=== PATIENT | male | born 1980 | race Caucasian/White ===

== ENCOUNTER 2016-11-05 14:47 | Inpatient (IN) ==
[2016-11-05] MEDS ORDERED: ONDANSETRON 4 MG/2 ML VIAL IV ONE (15:03)
[2016-11-05] MEDS ORDERED: 0.9 % SODIUM CHLORIDE 1,000 ML IV ONE ×2 (15:03→19:05)
--- NOTE | 2016-11-05 15:03 | Emergency Department Note ---
General Adult HPI - General Chief complaint: Shortness of Breath/Dyspnea Stated complaint: sob Source: patient Mode of arrival: ambulatory Limitations: no limitations - History of Present Illness HPI Narrative: This patient has had about cough flulike syndrome for 10 days. He says his flu test was negative. He was prescribed antibiotics but has been unable to keep anything down due to nausea and vomiting recently. He had a chest CT last Saturday at [place]'s not clear why don't have results yet. He is diabetic. - Related Data Home Medications Medication Instructions Recorded Confirmed blood sugar diagnostic strips See Dose Instructions .ROUTE 03/24/15 11/05/16 .MEDSUPPLY insulin lispro 100 unit/mL 9 unit SUB-Q .OT ml 03/24/15 11/05/16 subcutaneous pen pen needle, diabetic 32 gauge x See Dose Instructions .ROUTE 03/24/15 11/05/16" .MEDSUPPLY Previous Rx's Medication Instructions Recorded polyethylene glycol 3350 17 gram 17 g PO QDAY #30 each 05/17/16 oral powder packet insulin glargine 100 unit/mL (3 40 unit SUB-Q QHS #12 ml 06/05/16 mL) subcutaneous pen gabapentin 300 mg capsule 300 mg PO TID #90 cap 08/23/16 bupropion HCl XL 300 mg 24 hr 300 mg PO QAM #30 tab 09/12/16 tablet, extended release promethazine 25 mg tablet 25 mg PO Q6H PRN #120 tab 09/13/16 metoclopramide 10 mg tablet 10 mg PO QID #120 tab 10/24/16 hydrocodone 10 mg-acetaminophen 1 tab PO Q6H PRN 30 Days 10/25/16 325 mg tablet Allergies Allergy/AdvReac Type Severity Reaction Status Date / Time pregabalin [From Lyrica] Allergy Blurry Verified 11/05/16 14:20 Vision pseudoephedrine AdvReac Palpitation Verified 11/05/16 14:20 s Review of Systems Constitutional: Denies: fever, chills Eyes: Denies: eye pain ENT ED: Denies: ear pain, throat pain Cardiovascular: Denies: chest pain Respiratory: Reports: cough Gastrointestinal: Reports: abdominal pain, nausea, vomiting Genitourinary: Denies: urgency Musculoskeletal: Denies: back pain Integumentary: Denies: rash Past Medical History - Past Medical History Medical history: Reports: asthma, diabetes, other (hepatitis C) Psychiatric history: Reports: anxiety, ADD Physical Exam - General Limitations: no limitations General appearance: alert - Head Head exam: atraumatic - Eye Eye exam: Present: normal appearance - ENT ENT exam: mucous membranes dry - Neck Neck exam: Present: normal inspection - Chest Chest inspection: Present: normal inspection - Respiratory Respiratory exam: Present: normal lung sounds bilaterally - Cardiovascular Cardiovascular exam: Present: regular rate, normal rhythm, normal heart sounds - Abdominal Exam Abdominal exam: Present: soft, tenderness. Absent: distention, guarding, rebound Abdominal tenderness: Present: diffuse - Neurological Exam Neurological exam: Present: alert - Psychiatric Psychiatric exam: Present: normal affect - Skin Skin exam: Present: warm, dry Course Course Narrative: This patient became hypoglycemic down in the 30s 3 times while here. He needs to have a lot of nausea. We will go ahead and admit him to the hospital at this time. Vital Signs Temperature 97.7 F 11/05/16 14:52 Pulse Rate 97 H 11/05/16 14:52 Respiratory Rate 16 11/05/16 14:52 Blood Pressure 158/101 11/05/16 14:52 Pulse Oximetry (%) 100 11/05/16 14:52 Temperature 97.7 F 11/05/16 14:52 Pulse Rate 97 H 11/05/16 19:13 Respiratory Rate 18 11/05/16 19:13 Blood Pressure 140/83 11/05/16 19:13 Pulse Oximetry (%) 97 11/05/16 19:13 Medical Decision Making - Lab Data Lab results reviewed: Yes I reviewed the patient's lab results. Result diagrams: 11/05/16 15:15 11/05/16 15:15 Lab Results 11/05/16 11/05/16 11/05/16 Range/Units 15:15 15:15 15:15 WBC 10.4 (4.5-11.0) K/mcL RBC 3.78 L (4.50-5.90) M/mcL Hgb 12.1 L (13.5-16.5) g/dL Hct 35.7 L (41.0-55.0) % MCV 94.5 (80.0-100.0) fL MCH 32.1 (26.0-34.0) pg MCHC 33.9 (31.0-36.0) g/dL RDW 12.4 (11.5-14.5) % Plt Count 303 (140-440) K/mcL MPV 9.7 (7.4-10.4) fL Gran % 60.1 (38.0-78.0) % Lymph % (Auto) 30.0 (15.5-49.0) % Jennings % (Auto) 5.6 (1.0-9.0) % Eos % (Auto) 3.9 (0.0-7.0) % Baso % (Auto) 0.4 (0.0-2.0) % Gran # 6.2 (1.8-8.0) K/mcL Lymph # 3.1 (1.5-4.8) K/mcL Jennings # 0.6 (0.1-0.9) K/mcL Eos # 0.4 (0.0-0.7) K/mcL Baso # 0 (0.0-0.3) K/mcL Sodium 138 (133-145) mmol/L Potassium 4.3 (3.3-5.1) mmol/L Chloride 102 (96-108) mmol/L Carbon Dioxide 19 L (22-30) mmol/L Anion Gap 17.0 H (8-16) BUN 8 (6-20) mg/dl Creatinine 0.9 (0.7-1.2) mg/dl GFR Calculation 109 Glucose 143 H (70-105) mg/dL Calcium 9.1 (8.6-10.4) mg/dl Total Bilirubin 0.3 (0.0-1.0) mg/dL AST 22 (0-37) U/l ALT 24 (0-40) U/l Alkaline Phosphatase 66 (39-117) U/L Total Protein 6.6 (5.9-8.4) gm/dL Albumin 3.5 (3.2-5.2) gm/dL Globulin 3.1 (2.2-3.7) gm/dL Albumin/Globulin Ratio 1.1 (1.0-2.3) Beta-Hydroxybutyrate 0.10 (< 0.27) mmol/L Urine Color Urine Appearance Urine pH (5.0-9.0) Ur Specific [place] (1.000-1.035) Urine Protein (NEG) mg/dL Urine Glucose (UA) (NEG) mg/dL Urine Ketones (NEG) mg/dL Urine Occult Blood (<0.03) mg/dL Urine Nitrate (NEG) Urine Bilirubin (NEG) mg/dL Urine Urobilinogen (NEG) mg/dL Ur Leukocyte Esterase (NEG) /uL Urine RBC (0-1) /hpf Urine WBC (0-4) /hpf Ur Squamous Epith Cells (0-4) /hpf Urine Bacteria (0) /hpf Urine Mucus (0) /hpf Urine Sperm (ABSENT) /hpf Ur Culture Indicated? 11/05/16 Range/Units 18:12 WBC (4.5-11.0) K/mcL RBC (4.50-5.90) M/mcL Hgb (13.5-16.5) g/dL Hct (41.0-55.0) % MCV (80.0-100.0) fL MCH (26.0-34.0) pg MCHC (31.0-36.0) g/dL RDW (11.5-14.5) % Plt Count (140-440) K/mcL MPV (7.4-10.4) fL Gran % (38.0-78.0) % Lymph % (Auto) (15.5-49.0) % Jennings % (Auto) (1.0-9.0) % Eos % (Auto) (0.0-7.0) % Baso % (Auto) (0.0-2.0) % Gran # (1.8-8.0) K/mcL Lymph # (1.5-4.8) K/mcL Jennings # (0.1-0.9) K/mcL Eos # (0.0-0.7) K/mcL Baso # (0.0-0.3) K/mcL Sodium (133-145) mmol/L Potassium (3.3-5.1) mmol/L Chloride (96-108) mmol/L Carbon Dioxide (22-30) mmol/L Anion Gap (8-16) BUN (6-20) mg/dl Creatinine (0.7-1.2) mg/dl GFR Calculation Glucose (70-105) mg/dL Calcium (8.6-10.4) mg/dl Total Bilirubin (0.0-1.0) mg/dL AST (0-37) U/l ALT (0-40) U/l Alkaline Phosphatase (39-117) U/L Total Protein (5.9-8.4) gm/dL Albumin (3.2-5.2) gm/dL Globulin (2.2-3.7) gm/dL Albumin/Globulin Ratio (1.0-2.3) Beta-Hydroxybutyrate (< 0.27) mmol/L Urine Color Yellow Urine Appearance Clear Urine pH 8.0 (5.0-9.0) Ur Specific [place] 1.008 (1.000-1.035) Urine Protein 30 A (NEG) mg/dL Urine Glucose (UA) 50 A (NEG) mg/dL Urine Ketones Neg (NEG) mg/dL Urine Occult Blood 0.03 A (<0.03) mg/dL Urine Nitrate Neg (NEG) Urine Bilirubin Neg (NEG) mg/dL Urine Urobilinogen Neg (NEG) mg/dL Ur Leukocyte Esterase Neg (NEG) /uL Urine RBC 2 H (0-1) /hpf Urine WBC < 1 (0-4) /hpf Ur Squamous Epith Cells 0 (0-4) /hpf Urine Bacteria 0 (0) /hpf Urine Mucus Few (0) /hpf Urine Sperm Present A (ABSENT) /hpf Ur Culture Indicated? No Disposition Clinical Impression: Diabetes mellitus type 1, Gastroenteritis Disposition: Xfer As Inpt ([facility]) Condition: Good Referrals: Fam Reyes DO [Primary Care Provider] - Time of Disposition: 20:13
[2016-11-05] MEDS: HYDROmorphone 2 MG/ML SYRINGE IV PRN ×5 (15:26→22:43)
[2016-11-05 16:23] LABS: Basophils # (Auto) 0 K/mcL (0.0-0.3); Basophils % (Auto) 0.4 % (0.0-2.0); Eosinophils # (Auto) 0.4 K/mcL (0.0-0.7); Eosinophils % (Auto) 3.9 % (0.0-7.0); Granulocytes % (Auto) 60.1 % (38.0-78.0); Lymphocytes # (Auto) 3.1 K/mcL (1.5-4.8); Mean Cell Volume 94.5 fL (80.0-100.0); Mean Corpuscular HGB Conc 33.9 g/dL (31.0-36.0); Mean Corpuscular Hemoglobin 32.1 pg (26.0-34.0); Monocytes # (Auto) 0.6 K/mcL (0.1-0.9); Monocytes % (Auto) 5.6 % (1.0-9.0); Platelet Count 303 K/mcL (140-440); RBC 3.78 M/mcL (4.50-5.90); Red Cell Distribution Width 12.4 % (11.5-14.5)
[2016-11-05 16:59] LABS: ALT/SGPT 24 U/l (0-40); Albumin 3.5 gm/dL (3.2-5.2); Albumin/Globulin Ratio 1.1 (1.0-2.3); Alkaline Phosphatase 66 U/L (39-117); Blood Urea Nitrogen 8 mg/dl (6-20)
[2016-11-05] MEDS ORDERED: DEXTROSE 50% 50 ML SYRINGE IV ONE ×3 (17:45→19:07)
[2016-11-05 19:12] LABS: Appearance,Urine CLEAR; Bacteria,Urine 0 /hpf (0); Bilirubin,Urine NEG (NEG); Color,Urine YELLOW; Glucose,Urine (UA) 50 mg/dL (NEG); Leukocyte Esterase,Urine NEG /uL (NEG); Mucus,Urine FEW /hpf (0); Nitrate,Urine NEG (NEG); Protein,Urine 30 mg/dL (NEG); Specific Gravity,Urine 1.008 (1.000-1.035); Sperm,Urine PRESENT /hpf (ABSENT); Urine Blood 0.03 mg/dL (<0.03); Urine RBC 2 /hpf (0-1); Urine Squamous Epithelial Cell 0 /hpf (0-4); Urine WBC < 1 /hpf (0-4); Urobilinogen,Urine NEG (NEG)
[2016-11-05] MEDS ORDERED: AZITHROMYCIN 250 MG in DEXTROSE 5% IN WATER 250 ML IV SCH (19:15)
[2016-11-05] MEDS: DEXTROSE 10 % IN WATER 1,000 ML IV SCH (21:40)
[2016-11-05] MEDS ORDERED: POTASSIUM CHLORIDE 20 MEQ PACKET PO PRN (21:59)
[2016-11-05] MEDS ORDERED: ACETAMINOPHEN 1,000 MG/100 ML BOTTLE IV PRN (21:59)
[2016-11-05] MEDS ORDERED: POTASSIUM CHLORIDE 40 MEQ in DEXTROSE 5% IN WATER 500 ML IV PRN (21:59)
[2016-11-05] MEDS ORDERED: 0.9 % SODIUM CHLORIDE 1,000 ML IV SCH (21:59)
[2016-11-05] MEDS ORDERED: ACETAMINOPHEN 325 MG TABLET PO PRN (21:59)
[2016-11-05] MEDS ORDERED: DEXTROSE 50% 50 ML VIAL IV PRN ×2 (21:59)
[2016-11-05] MEDS ORDERED: DEXTROSE 50% 50 ML VIAL IV ONE (22:15)
[2016-11-05] MEDS: 0.9 % SODIUM CHLORIDE 10 ML SYRINGE IV SCH (22:21)
[2016-11-05] MEDS: INSULIN LISPRO 1 UNIT/0.01 ML UNIT SQ SCH (22:33)
[2016-11-05] MEDS: ONDANSETRON 4 MG/2 ML VIAL IV PRN (22:43)
[2016-11-05] MEDS: HYDROcodone/APAP 10/325MG TABLET PO PRN (23:41)
[2016-11-05] MEDS: traZODone HCL 50 MG TABLET PO PRN (23:41)
[2016-11-06] MEDS: SENNOSIDES/DOCUSATE SODIUM 1 TAB TABLET PO SCH ×2 (00:22→21:34)
[2016-11-06] MEDS: GABAPENTIN 300 MG CAPSULE PO SCH ×5 (00:22→21:32)
[2016-11-06] MEDS: DOCUSATE SODIUM 100 MG CAPSULE PO SCH ×3 (00:23→21:34)
[2016-11-06] MEDS: 0.9 % SODIUM CHLORIDE 1,000 ML IV SCH ×4 (02:10→19:01)
[2016-11-06] MEDS: HYDROmorphone 2 MG/ML SYRINGE IV PRN ×5 (04:07→22:45)
[2016-11-06] MEDS: ONDANSETRON 4 MG/2 ML VIAL IV PRN ×2 (05:13→21:58)
[2016-11-06] MEDS: 0.9 % SODIUM CHLORIDE 10 ML SYRINGE IV SCH ×3 (05:47→21:45)
[2016-11-06 06:31] LABS: Mean Cell Volume 96.1 fL (80.0-100.0); Mean Corpuscular HGB Conc 33.6 g/dL (31.0-36.0); Mean Corpuscular Hemoglobin 32.3 pg (26.0-34.0); Platelet Count 260 K/mcL (140-440); RBC 3.27 M/mcL (4.50-5.90); Red Cell Distribution Width 12.7 % (11.5-14.5)
[2016-11-06 07:31] LABS: ALT/SGPT 18 U/l (0-40); Albumin/Globulin Ratio 1.2 (1.0-2.3); Alkaline Phosphatase 55 U/L (39-117); Bilirubin,Direct < 0.2 mg/dL (0.0-0.3); Blood Urea Nitrogen 6 mg/dl (6-20); Gamma Glutamyl Transpeptidase 19 U/L (8-61); Magnesium 1.8 mg/dL (1.6-2.5); Phosphorous 3.1 mg/dL (2.7-4.5)
[2016-11-06] MEDS: INSULIN LISPRO 1 UNIT/0.01 ML UNIT SQ SCH ×4 (07:59→21:32)
[2016-11-06] MEDS: HYDROcodone/APAP 10/325MG TABLET PO PRN (08:13)
[2016-11-06] MEDS: PROMETHAZINE 25 MG TABLET PO PRN ×2 (08:13→22:04)
[2016-11-06] MEDS: PANTOPRAZOLE 40 MG VIAL IV SCH (08:13)
[2016-11-06 08:14] LABS: Band Neutrophils % 1 % (0-10); Eosinophils % (Manual) 5 % (0-7); Lymphocytes % 28 % (15-49); Monocytes % (Manual) 7 % (1-9); Platelet Estimate NORMAL (NORMAL); RBC Morphology NORMAL (NORMAL); Segmented Neutrophils % 57 % (38-78)
[2016-11-06] MEDS ORDERED: INSULIN GLARGINE, HUMAN 1 UNIT/0.01 ML SQ SCH ×2 (09:00→21:26)
[2016-11-06] MEDS: MULTIVIT,THER IRON,CA,FA & MIN 1 TABLET PO SCH (09:35)
[2016-11-06] MEDS: buPROPion 150 MG TAB.XL.24H PO SCH (09:35)
[2016-11-06] MEDS: ENOXAPARIN 40 MG/0.4 ML SYRINGE SQ SCH (09:35)
[2016-11-06] MEDS ORDERED: IPRATROPIUM/ALBUTEROL 3 ML AMPUL.NEB NEB PRN (11:08)
--- NOTE | 2016-11-06 11:12 | Internal Med Progress Note ---
Medical - PN: Subj Patient information: Note initiated : 11/06/16 at 11:09 am Service Date, if different from initiated Date: [] Patient: Mono Pacheco 36 y/o M admitted on 11/05/16 for Shortness of Breath/ Diabetes, Gastroenteritis. Chief Complaint: [] Interval history: 11/05- patient admitted with early DKA/nausea vomiting and URI. Significant shortness of breath and persistent cough. Associated nausea. Admitted as inpatient in light of Ketoacidosis and hypoglycemia 11/06 patient doing better. Improved nausea persistent cough and shortness of breath. On bronchodilators. No fever chills nausea vomiting. Mother at bedside. No active concerns per nursing staff. - Constitutional Vitals: Vital Signs Temp Pulse Resp BP Pulse Ox 97.6 F 80 18 109/70 97 11/06/16 08:00 11/06/16 11:07 11/06/16 11:07 11/06/16 11:07 11/06/16 11:07 Period Temp Pulse Resp BP Sys/Shore Pulse Ox Last 24 Hr 97.6 F-98.1 F 80-98 16-20 100-154/65-98 95-99 Intake and Output 11/05/16 11/06/16 11/06/16 21:59 05:59 13:59 Intake Total 1200 / 1200 Balance 1200 / 1200 Weight 147 lb Intake & Output: Intake & Output 11/05/16 11/06/16 11/06/16 21:59 05:59 13:59 Intake Total 1200 / 1200 Balance 1200 / 1200 Weight 147 lb Intake: IV 1000 / 1000 Sodium Chloride 0.9% 1, 1000 / 1000 000 ml @ Wide Open IV BOLUS YAHIR Rx#:[id number] Oral 200 / 200 Other: # Voids 1 General appearance: cooperative, no acute distress Exam: alert oriented minimally labored breathing, Expiratory rhonchi Regular rhythm Nondistended soft abdomen No lymphedema Medical - PN: Obj Da - Labs CBC & Chem 7: 11/06/16 03:40 11/06/16 03:40 Labs: Abnormal Lab Results 11/06/16 11/06/16 03:40 03:40 RBC 3.27 L Hgb 10.6 L Hct 31.4 L Calcium 7.8 L Total Protein 5.5 L Albumin 3.0 L Meds: Medications Acetaminophen (Tylenol) 650 mg PO Q4-6HP PRN PRN Reason: PAIN/FEVER > 101 Last Admin: 11/06/16 02:08 Dose: 650 mg Acetaminophen/Hydrocodone Bitart ([place] 10/325mg) 1 tab PO Q6HP PRN PRN Reason: Chronic Pain Syndrome Last Admin: 11/06/16 08:13 Dose: 1 tab Albuterol/Ipratropium (Duoneb) 3 ml NEB Q4HP PRN PRN Reason: Shortness Of Breath Budesonide (Pulmicort) 2 puff INH BID [facility] Bupropion HCl (Wellbutrin Xl) 300 mg PO DAILY [facility] Last Admin: 11/06/16 09:35 Dose: 300 mg Dextrose (Dextrose 50%) 0 ml IV UD PRN PRN Reason: Hypoglycemia Last Admin: 11/05/16 22:21 Dose: 50 ml Dextrose (Dextrose 50%) 50 ml IV UD PRN PRN Reason: Hypoglycemia Diagnostic Test (Pha) (Accu-Chek) 1 each FS ACHS [facility] Last Admin: 11/06/16 07:59 Dose: 1 each Docusate Sodium (Colace) 100 mg PO BID [facility] Last Admin: 11/06/16 09:35 Dose: Not Given Enoxaparin Sodium (Lovenox) 40 mg SQ DAILY [facility] Last Admin: 11/06/16 09:35 Dose: 40 mg Gabapentin (Neurontin) 300 mg PO TID [facility] Last Admin: 11/06/16 09:34 Dose: 300 mg Guaifenesin/Codeine Phosphate (Robitussin Ac) 10 ml PO Q4HP PRN PRN Reason: Cough Hydromorphone HCl (Dilaudid) 0 mg IV Q4HP PRN PRN Reason: Pain Last Admin: 11/06/16 08:15 Dose: 0.5 mg Potassium Chloride 40 meq/ (Dextrose) 520 mls @ 130 mls/hr IV UD PRN PRN Reason: K+ = or < 3.5 Sodium Chloride (Sodium Chloride 0.9%) 1,000 mls @ 100 mls/hr IV .Q10H [facility] Last Admin: 11/06/16 02:31 Dose: Not Given Sodium Chloride (Sodium Chloride 0.9%) 1,000 mls @ 0 mls/hr IV BOLUS [facility] PRN Reason: Wide Open Last Infusion: 11/06/16 02:10 Dose: Infused Acetaminophen (Ofirmev) 1,000 mg in 100 mls @ 200 mls/hr IV Q6HP PRN PRN Reason: PAIN/FEVER > 101 Dextrose (Dextrose 10%-Water Iv Solution) 1,000 mls @ 50 mls/hr IV .Q20H [facility] Last Admin: 11/05/16 21:40 Dose: 50 mls/hr Levofloxacin (Levaquin) 750 mg in 150 mls @ 100 mls/hr IV Q24H [facility] Insulin Glargine (Lantus) 20 unit SQ DAILY [facility] Last Admin: 11/06/16 11:07 Dose: Not Given Insulin Human Lispro (Humalog) 0 unit SQ ACHS [facility] PRN Reason: Protocol Last Admin: 11/06/16 07:59 Dose: Not Given Iron Carb/Multivit/Highfill/Folic Acid (Multivitamin W/Minerals) 1 tab PO DAILY [facility] Last Admin: 11/06/16 09:35 Dose: 1 tab Methylprednisolone Sodium Succinate (Solu-Medrol) 40 mg IV Q12 [facility] Ondansetron HCl (Zofran) 4 mg IV Q4-6HP PRN PRN Reason: Nausea And Vomiting Last Admin: 11/06/16 05:13 Dose: 4 mg Pantoprazole Sodium (Protonix) 40 mg IV QAMAC [facility] Last Admin: 11/06/16 08:13 Dose: 40 mg Potassium Chloride (Klor-Con) 40 meq PO DAILYP PRN PRN Reason: K+ < 3.5 Promethazine HCl (Phenergan) 25 mg PO Q6HP PRN PRN Reason: nausea and vomiting Last Admin: 11/06/16 08:13 Dose: 25 mg Senna/Docusate Sodium (Senna Plus Tablet) 1 tab PO HS [facility] Last Admin: 11/06/16 00:22 Dose: Not Given Sodium Chloride (Saline Flush) 10 ml IV Q8 [facility] Last Admin: 11/06/16 05:47 Dose: Not Given Trazodone HCl (Desyrel) 50 mg PO HSP PRN PRN Reason: Insomnia Last Admin: 11/05/16 23:41 Dose: 50 mg Medical - PN: A/P - Time Spent With Patient Total time spent is greater than 50% in coordination of care (as documented) at patient's floor/unit and/or counseling patient: 25 - 35 minutes (1) Diabetic ketoacidosis Status: Acute Assessment and plan: * early DKA- patient responded well to crystalloids insulin. Nearly resolved with normalization of anion gap and acidosis. Continue lectrolyteManagement and transfer to medical floor * Acute bronchitis in the setting of asthma- start IV steroids and bronchodilators pulmonary toilet. Levaquin for infectious coverage however de- escalate if no evidence of infection * DM type I on basal prandial insulin * Neuropathy and gabapentin * Anxiety disorder on bupropion * DVT prophylaxis on enoxaparin Plan * DKA management per protocol * Bronchodilators steroids * Pre-existing medical condition management as above Current Visit: No Medical - PN: Qual - Stroke Symptom Onset Unknown: No - VTE Deep Vein Thrombosis/Pulmonary Embolism Present on Admission: No
[2016-11-06] MEDS ORDERED: IBUPROFEN 200 MG TABLET PO PRN (11:17)
[2016-11-06] MEDS: guaiFENesin/CODEINE 10 ML UDC PO PRN ×3 (11:30→22:52)
[2016-11-06] MEDS: LEVOFLOXACIN 750 MG/150 ML BAG IV SCH (11:30)
[2016-11-06] MEDS: methylPREDNISolone SOD SUCC 40 MG/ML VIAL IV SCH ×2 (11:30→21:44)
--- NOTE | 2016-11-06 12:32 | History and Physical Report ---
DATE OF ADMISSION: 11/05/2016 REASON FOR ADMISSION: Worsening shortness of breath, nausea, vomiting and unable to take orally. HISTORY OF CHIEF COMPLAINT: The patient is a 36-year-old with known history of type 1 diabetes who comes to [facility] with relentless nausea and vomiting, along with cough, shortness of breath that started roughly a few days ago and has evolved into a significant decline in respiratory status along with inability to take orally. In the ER, initial workup was significant for sugars in the 30s. However, with significant anion gap and metabolic acidosis and low bicarbonate suggestive of early DKA. The patient was started on crystalloids along with dextrose and bronchodilators. Hospitalist Service was consulted. At the time of examination, the patient is accompanied with his mother. He was able to provide most of the history. He endorses to flu-like symptoms over the last week which has progressed with inability to function, increasing relentless coughing spells and associated headache and nausea. He denies, however, fevers, shaking chills. He does endorse productive sputum but denies diarrhea, dysuria, abdominal pain, rash, joint swelling, arthralgia. He also denies glandular swelling, or weight loss. He endorses to sick contact, including his mother and kids. He is a single father. REVIEW OF SYSTEMS: Ten-point review of system was performed and negative except the ones discussed above. PAST MEDICAL HISTORY: 1. Type 1 diabetes. 2. Neuropathy. 3. Anxiety disorder. CURRENT MEDICATIONS: 1. Glargine 40 units daily. 2. Gabapentin 300 mg t.i.d. 3. Bupropion 300 mg q.a.m. 4. Promethazine 25 mg q.6h. 5. Hydrocodone/acetaminophen 10/325 mg one tab q.6. SOCIAL HISTORY: The patient occasionally smokes but frequently smokes marijuana. He is a single father, and lives with mother who provides help with two kids. He is on SSI disability. FULL CODE STATUS. Primary care physician is Fam Reyes DO. FAMILY HISTORY: Significant for father with colon cancer, MS. PHYSICAL EXAMINATION: GENERAL: The patient is alert, oriented, in significant distress. Height 5 feet 9 inches. BMI 21.7. VITAL SIGNS: Blood pressure 147/98, respiratory rate 17, temperature 98.1, pulse 98, sats 99% on room air. HEENT: Pupils symmetric. Oral cavity is dry. No ear or nose discharge. Head is normocephalic and atraumatic. NECK: No lymphadenopathy. HEART: S1, S2, regular rate and rhythm. No murmur. CHEST: Increased expiratory rhonchi along with labored breathing. ABDOMEN: Nontender, nondistended, no organomegaly. LOWER EXTREMITIES: No cyanosis or clubbing. No joint swelling. SKIN: No suspicious lesions. PSYCHIATRIC: Alert and cooperative, mild anxiety. NEURO: Nonfocal. LABS AND IMAGING: White count 10.4, hemoglobin 12.1, neutrophils 60%. Sodium 130, potassium 4.3, creatinine 0.9, BUN 8, anion gap 17, bicarbonate 19. LFTs unremarkable. Beta hydroxybutyrate 0.1. UA unremarkable. EKG: Sinus tachycardia. ASSESSMENT AND PLAN: A 36-year-old admitted with mild diabetic ketoacidosis (DKA) along with acute asthma exacerbation, likely from bronchitis. 1. Mild DKA. Will be managed per protocol. Admit to telemetry. Continue aggressive electrolyte monitoring and replacement, along with insulin, crystalloids and supportive management. 2. Asthma exacerbation in light of bronchitis. Continue steroids, bronchodilators and pulmonary toilet. 3. History of: a. Anxiety disorder. Continue bupropion. b. Neuropathy. Continue gabapentin. c. Diabetes mellitus type 1. Continue basal prandial insulin. Overall a high-complexity admit requiring telemetry stay and we anticipate at least to mid night hospitalization. AA:axel Job ID: [id number] Doc ID: [id number] Faizan Reyes DO
[2016-11-06] MEDS: HYDROcodone/APAP 5/325MG TABLET PO PRN ×3 (13:08→22:46)
[2016-11-06] MEDS: DEXTROSE 10 % IN WATER 1,000 ML IV SCH (18:13)
[2016-11-06] MEDS: traZODone HCL 50 MG TABLET PO PRN (21:32)
[2016-11-06] MEDS: BUDESONIDE 1 PUFF INHALER INH SCH (21:40)
[2016-11-06] MEDS ORDERED: INSULIN GLARGINE, HUMAN 1 UNIT/0.01 ML SQ ONE (21:43)
[2016-11-06] MEDS ORDERED: INSULIN LISPRO 1 UNIT/0.01 ML UNIT SQ ONE (21:44)
[2016-11-06] MEDS ORDERED: 0.9 % SODIUM CHLORIDE 1,000 ML IV SCH (22:00)
[2016-11-06] MEDS ORDERED: METOCLOPRAMIDE 10 MG TABLET PO SCH (22:00)
[2016-11-06] MEDS ORDERED: METOCLOPRAMIDE 10 MG/2 ML VIAL ONE (22:27)
[2016-11-06] MEDS ORDERED: METOCLOPRAMIDE 10 MG TABLET ONE (22:37)
[2016-11-07] MEDS: HYDROcodone/APAP 5/325MG TABLET PO PRN ×2 (03:52→08:12)
[2016-11-07] MEDS: HYDROmorphone 2 MG/ML SYRINGE IV PRN ×2 (03:53→08:11)
[2016-11-07 06:42] LABS: Mean Cell Volume 95.8 fL (80.0-100.0); Mean Corpuscular HGB Conc 33.5 g/dL (31.0-36.0); Mean Corpuscular Hemoglobin 32.1 pg (26.0-34.0); Platelet Count 283 K/mcL (140-440); Red Cell Distribution Width 12.3 % (11.5-14.5)
[2016-11-07 06:57] LABS: ALT/SGPT 19 U/l (0-40); Albumin 3.3 gm/dL (3.2-5.2); Albumin/Globulin Ratio 1.1 (1.0-2.3); Alkaline Phosphatase 67 U/L (39-117); Bilirubin,Direct < 0.2 mg/dL (0.0-0.3); Blood Urea Nitrogen 11 mg/dl (6-20); Gamma Glutamyl Transpeptidase 21 U/L (8-61); Magnesium 1.9 mg/dL (1.6-2.5); Phosphorous 2.3 mg/dL (2.7-4.5); Uric Acid 4.2 mg/dL (2.5-8.0)
[2016-11-07] MEDS: PANTOPRAZOLE 40 MG VIAL IV SCH (07:24)
[2016-11-07] MEDS: 0.9 % SODIUM CHLORIDE 10 ML SYRINGE IV SCH (07:24)
[2016-11-07] MEDS: DOCUSATE SODIUM 100 MG CAPSULE PO SCH (07:30)
[2016-11-07] MEDS: INSULIN LISPRO 1 UNIT/0.01 ML UNIT SQ SCH ×2 (07:30→09:18)
[2016-11-07] MEDS: GABAPENTIN 300 MG CAPSULE PO SCH (08:12)
[2016-11-07] MEDS: methylPREDNISolone SOD SUCC 40 MG/ML VIAL IV SCH (08:12)
[2016-11-07] MEDS: MULTIVIT,THER IRON,CA,FA & MIN 1 TABLET PO SCH (08:12)
[2016-11-07] MEDS: ENOXAPARIN 40 MG/0.4 ML SYRINGE SQ SCH (08:12)
[2016-11-07 08:29] LABS: Band Neutrophils % 3 % (0-10); Lymphocytes % 15 % (15-49); Monocytes % (Manual) 1 % (1-9); Platelet Estimate NORMAL (NORMAL); RBC Morphology NORMAL (NORMAL); Segmented Neutrophils % 81 % (38-78)
[2016-11-07] MEDS: buPROPion 150 MG TAB.XL.24H PO SCH (09:05)
[2016-11-07] MEDS: BUDESONIDE 1 PUFF INHALER INH SCH (09:05)
[2016-11-07] MEDS: LEVOFLOXACIN 750 MG/150 ML BAG IV SCH (09:13)
[2016-11-07] MEDS ORDERED: FLU VACC QS2016-17 36MOS UP/PF 60 MCG/0.5 ML SYRINGE IM ONE (10:00)
--- NOTE | 2016-11-07 10:41 | Discharge Summary ---
Medical - DS: Prov Patient information: Note initiated : 11/07/16 at 10:37 am Service Date, if different from initiated Date: [] Patient: Mono Pacheco 36 y/o M admitted on 11/05/16 for Shortness of Breath/ Diabetes, Gastroenteritis. Chief Complaint: [] Date of admission: 11/05/16 21:48 Discharge date: 11/07/16 Primary care physician: [f_Reg Prim Care Provider] Medical - DS: Meds - Discharge Medications Prescriptions: Budesonide [Pulmicort] 2 puff INH BID 30 Days Levofloxacin [Levaquin] 750 mg PO DAILY #3 tablet guaiFENesin/CODEINE [Robitussin AC] 10 ml PO Q4HP PRN 14 Days PRN Reason: Cough predniSONE [Deltasone] 40 mg PO DAILY #10 tablet Active and Home Medications: Home Medications Lisinopril [Zestril] 10 mg PO DAILY 11/05/16 [History Confirmed 11/05/16 Last Taken 10/31/16] buPROPion HCL [Wellbutrin Xl] 300 mg PO QPM 11/05/16 [History Confirmed Last Taken 10/31/16] Budesonide [Pulmicort] 2 puff INH BID 30 Days 11/07/16 [Rx Last Taken Unknown] Levofloxacin [Levaquin] 750 mg PO DAILY #3 tablet 11/07/16 [Rx Last Taken Unknown] guaiFENesin/CODEINE [Robitussin AC] 10 ml PO Q4HP PRN 14 Days 11/07/16 [Rx Last Taken Unknown] predniSONE [Deltasone] 40 mg PO DAILY #10 tablet 11/07/16 [Rx Last Taken Unknown ] Active Medications Acetaminophen (Tylenol) 650 mg PO Q4-6HP PRN PRN Reason: PAIN/FEVER > 101 Last Admin: 11/06/16 02:08 Dose: 650 mg Acetaminophen/Hydrocodone Bitart (Struthers 5/325mg) 1 tab PO Q4HP PRN PRN Reason: Pain Last Admin: 11/07/16 08:12 Dose: 1 tab Albuterol/Ipratropium (Duoneb) 3 ml NEB Q4HP PRN PRN Reason: Shortness Of Breath Budesonide (Pulmicort) 2 puff INH BID YAHIR Last Admin: 11/07/16 09:05 Dose: 2 puff Bupropion HCl (Wellbutrin Xl) 300 mg PO DAILY [facility] Last Admin: 11/07/16 09:05 Dose: 300 mg Dextrose (Dextrose 50%) 0 ml IV UD PRN PRN Reason: Hypoglycemia Last Admin: 11/05/16 22:21 Dose: 50 ml Dextrose (Dextrose 50%) 50 ml IV UD PRN PRN Reason: Hypoglycemia Diagnostic Test (Pha) (Accu-Chek) 1 each FS ACHS [facility] Last Admin: 11/07/16 07:24 Dose: 1 each Docusate Sodium (Colace) 100 mg PO BID [facility] Last Admin: 11/07/16 07:30 Dose: Not Given Enoxaparin Sodium (Lovenox) 40 mg SQ DAILY [facility] Last Admin: 11/07/16 08:12 Dose: 40 mg Gabapentin (Neurontin) 300 mg PO TID [facility] Last Admin: 11/07/16 08:12 Dose: 300 mg Guaifenesin/Codeine Phosphate (Robitussin Ac) 10 ml PO Q4HP PRN PRN Reason: Cough Last Admin: 11/06/16 22:52 Dose: 10 ml Hydromorphone HCl (Dilaudid) 0 mg IV Q4HP PRN PRN Reason: Pain Last Admin: 11/07/16 08:11 Dose: 0.5 mg Potassium Chloride 40 meq/ (Dextrose) 520 mls @ 130 mls/hr IV UD PRN PRN Reason: K+ = or < 3.5 Acetaminophen (Ofirmev) 1,000 mg in 100 mls @ 200 mls/hr IV Q6HP PRN PRN Reason: PAIN/FEVER > 101 Levofloxacin (Levaquin) 750 mg in 150 mls @ 100 mls/hr IV Q24H [facility] Last Admin: 11/07/16 09:13 Dose: 100 mls/hr Sodium Chloride (Sodium Chloride 0.9%) 1,000 mls @ 75 mls/hr IV .[id number] [facility] Last Admin: 11/06/16 22:47 Dose: 75 mls/hr Ibuprofen (Motrin) 200 mg PO Q4HP PRN PRN Reason: Pain Last Admin: 11/06/16 11:30 Dose: 200 mg Insulin Glargine (Lantus) 20 - 40 unit SQ DAILY [facility] Last Admin: 11/07/16 07:31 Dose: Not Given Insulin Human Lispro (Humalog) 0 unit SQ ACHS [facility] PRN Reason: Protocol Last Admin: 11/07/16 09:18 Dose: 3 unit Iron Carb/Multivit/Window Shade Cutter/Folic Acid (Multivitamin W/Minerals) 1 tab PO DAILY [facility] Last Admin: 11/07/16 08:12 Dose: 1 tab Methylprednisolone Sodium Succinate (Solu-Medrol) 40 mg IV Q12 [facility] Last Admin: 11/07/16 08:12 Dose: 40 mg Metoclopramide HCl (Reglan) 10 mg PO QIDP [facility] Ondansetron HCl (Zofran) 4 mg IV Q4-6HP PRN PRN Reason: Nausea And Vomiting Last Admin: 11/06/16 21:58 Dose: 4 mg Pantoprazole Sodium (Protonix) 40 mg IV QAMAC [facility] Last Admin: 11/07/16 07:24 Dose: 40 mg Potassium Chloride (Klor-Con) 40 meq PO DAILYP PRN PRN Reason: K+ < 3.5 Promethazine HCl (Phenergan) 25 mg PO Q6HP PRN PRN Reason: nausea and vomiting Last Admin: 11/06/16 22:04 Dose: 25 mg Senna/Docusate Sodium (Senna Plus Tablet) 1 tab PO HS [facility] Last Admin: 11/06/16 21:34 Dose: Not Given Sodium Chloride (Saline Flush) 10 ml IV Q8 [facility] Last Admin: 11/07/16 07:24 Dose: Not Given Trazodone HCl (Desyrel) 50 mg PO HSP PRN PRN Reason: Insomnia Last Admin: 11/06/16 21:32 Dose: 50 mg Medical - DS: Hosp Hospital course: DISCHARGE DIAGNOSIS * Early DKA- patient responded well to crystalloids and insulin. Nearly resolved with normalization of anion gap and acidosis. * Acute bronchitis in the setting of asthma- clinically responding well to steroids transition to oral steroids/inhaledbronchodilators. Continue additional 5 days Levaquin * DM type I continue home dose basal prandial insulin. * Neuropathy stable on gabapentin * Anxiety disorder continued on bupropion [facility] Mr. Pacheco is a 36 year old male 11/05- patient admitted with early DKA/nausea vomiting and URI. Significant shortness of breath and persistent cough. Associated nausea. Admitted as inpatient in light of Ketoacidosis and hypoglycemia 11/06 patient doing better. Improved nausea persistent cough and shortness of breath. On bronchodilators. No fever chills nausea vomiting. Mother at bedside. No active concerns per nursing staff. 11/07- patient doing remarkably better. No overnight events. anion gap/ bicarbonate normalized. No nausea or chest pain cough or shortness of breath. Feels at baseline and wants to be discharged. Detailed discharge instruction provided to the patient along with antibiotics for additional 5 days and steroids. Discharge diagnosis: DKA - Time Spent with Patient Total time spent providing and/or coordinating discharge services: Greater than 30 minutes Medical - DS: Exam - Constitutional Vitals: Vital Signs Temp Pulse Resp BP Pulse Ox 11/07/16 03:50 97.8 F 104 H 18 149/103 96 11/06/16 22:54 98.2 F 82 18 155/101 99 11/06/16 19:58 20 142/93 100 11/06/16 19:25 18 11/06/16 15:18 98.0 F 90 20 124/81 96 11/06/16 11:07 97.8 F 80 18 109/70 97 Intake and Output 11/06/16 11/07/16 11/07/16 21:59 05:59 13:59 Intake Total 1290 / 1290 300 / 300 240 / 240 Balance 1290 / 1290 300 / 300 240 / 240 Intake: IV 1000 / 1000 Dextrose 10%-Water IV 1000 / 1000 Solution 1,000 ml @ 50 mls/hr IV .Q20H [facility] Rx#: [id number] Oral 290 / 290 300 / 300 240 / 240 Other: Meal Dinner Breakfast Percent of Meal Consumed 75% 100% Feeding Ability Assist with Tray Set Up Assist with Tray Set Up # Voids 1 1 # Bowel Movements 0 Weight 148 lb 8 oz General appearance: cooperative, no acute distress Additional comments: nonlabored breathing Ambulating No lymphedema able to talk in full sentences Medical - DS: Data Labs on day of discharge: Labs from last 24 hours 11/07/16 11/07/16 03:35 03:35 WBC 13.1 H RBC 3.60 L Hgb 11.5 L Hct 34.5 L MCV 95.8 MCH 32.1 MCHC 33.5 RDW 12.3 Plt Count 283 MPV 9.3 Total Counted 100 Seg Neutrophils % 81 H Band Neutrophils % 3 Lymphocytes % 15 Monocytes % (Manual) 1 Platelet Estimate Normal RBC Morphology Normal Sodium 136 Potassium 4.5 Chloride 103 Carbon Dioxide 21 L Anion Gap 12.0 BUN 11 Creatinine 0.9 GFR Calculation 109 Glucose 184 H Uric Acid 4.2 Calcium 8.5 L Phosphorus 2.3 L Magnesium 1.9 Total Bilirubin 0.3 Direct Bilirubin < 0.2 GGT 21 AST 20 ALT 19 Alkaline Phosphatase 67 Lactate Dehydrogenase 217 Total Protein 6.3 Albumin 3.3 Globulin 3.0 Albumin/Globulin Ratio 1.1 Triglycerides 72 Medical - DS: A/P - Patient/Caregiver Discharge Instructions Activity: resume usual activities as tolerated Diet: Consistent Carbohydrate Additional Instructions: Follow-up PCP in 5 days I recommend primary care physician to check CBC BMP as a posthospital follow-up Antibiotics for 5 days Continue bronchodilators and steroids as advised Return to ER if worsening fever chills shortness of breath, diarrhea, bleeding Review risk and side effect profile of medications including antibiotics. Side effect may include mild to severe reaction including rash, diarrhea, cdiff and even which can be prevented by close follow-up with PCP Refrain from smoking and alcohol Continue consistent carbohydrate diet Discussed importance of medication adherence Please review medication list with patient prior to discharge Please schedule follow-up with PCP/Providers prior to discharge and provide printouts Portions of this chart may have been created with [employer] voice recognition software. Occasional wrong-word or ?sound-like? substitutions may have occurred due to the inherent limitations of voice recognition software. Please read the chart carefully and recognize, using context, where the substitutions have occurred. CC- PCP Prescriptions: Budesonide [Pulmicort] 2 puff INH BID 30 Days Levofloxacin [Levaquin] 750 mg PO DAILY #3 tablet guaiFENesin/CODEINE [Robitussin AC] 10 ml PO Q4HP PRN 14 Days PRN Reason: Cough predniSONE [Deltasone] 40 mg PO DAILY #10 tablet - Follow up Plan Follow up with: Fam Reyes DO [Primary Care Provider] - Disposition: Home, Self-Care Prognosis: Good Rehab Potential: Fair I certify that the patient requires SNF services: No Overall status at discharge: patient is back to baseline Medical - DS: Qual - VTE Deep Vein Thrombosis/Pulmonary Embolism Present on Admission: No
== END 2016-11-07 11:35 | disposition home or self-care (01) | DRG 638 ==
LOC: ED 14:47 → ICU 21:40
PROVIDERS: ADMIT Internal Medicine; ATTEND Internal Medicine

== ENCOUNTER 2019-08-06 04:47 | Inpatient (IN) ==
[2019-07-31 11:47] LABS: Appearance,Urine CLEAR; Bacteria,Urine 0 /hpf (0); Bilirubin,Urine NEG (NEG); Color,Urine YELLOW; Culture Indicated,Urine NO; Glucose,Urine (UA) NEGATIVE (NEG); Ketones,Urine NEG (NEG); Leukocyte Esterase,Urine NEG /uL (NEG); Mucus,Urine FEW /hpf (0); Nitrate,Urine NEG (NEG); Protein,Urine 30 mg/dL (NEG); Specific Gravity,Urine 1.019 (1.000-1.035); Urine Blood 0.03 mg/dL (<0.03); Urine RBC 4 /hpf (0-1); Urine Squamous Epithelial Cell 0 /hpf (0-4); Urine WBC 0 /hpf (0-4); Urobilinogen,Urine NEG (NEG)
[2019-07-31 12:41] LABS: Basophils # (Auto) 0 K/mcL (0.0-0.3); Basophils % (Auto) 0.4 % (0.0-2.0); Eosinophils # (Auto) 0.5 K/mcL (0.0-0.7); Eosinophils % (Auto) 5.9 % (0.0-7.0); Granulocytes % (Auto) 58.6 % (38.0-78.0); Hematocrit 36.2 % (41.0-55.0); Hemoglobin 12.2 g/dL (13.5-16.5); Lymphocytes # (Auto) 2.7 K/mcL (1.5-4.8); Mean Cell Volume 100.4 fL (80.0-100.0); Mean Corpuscular HGB Conc 33.7 g/dL (31.0-36.0); Mean Platelet Volume 9.9 fL (7.4-10.4); Monocytes # (Auto) 0.3 K/mcL (0.1-0.9); Monocytes % (Auto) 4.1 % (1.0-12.0); Platelet Count 257 K/mcL (140-440); Red Cell Distribution Width 12.7 % (11.5-14.5); WBC 8.6 K/mcL (4.5-11.0)
[2019-07-31 12:48] LABS: Blood Urea Nitrogen 16 mg/dl (6-20); Calcium 9.6 mg/dl (8.6-10.4); Carbon Dioxide 24 mmol/L (22-30); Chloride 100 mmol/L (96-108); Glomerular Filtration Rate 107; Glucose 189 mg/dL (70-105)
[2019-07-31 13:06] LABS: INR 0.9 (0.9-1.1); Prothrombin Time 12.6 sec (11.9-14.5)
[2019-07-31 13:24] LABS: Estimated Average Glucose(eAG) 197 mg/dL; Hemoglobin A1C 8.5 % HGB (4.0-6.0)
[2019-08-06] MEDS ORDERED: SCOPOLAMINE 1 PATCH PATCH TOPICAL PRN (05:00)
[2019-08-06] MEDS ORDERED: 0.9 % SODIUM CHLORIDE 9 ML, KETOROLAC 30 MG, ROPIVACAINE HCL/PF 49.5 ML, EPINEPHrine 0.... IJ SCH (06:00)
[2019-08-06] MEDS ORDERED: ceFAZolin 2 GM in DEXTROSE 5% IN WATER 50 ML IV SCH (06:00)
[2019-08-06] MEDS ORDERED: DEXAMETHASONE 10 MG/ML VIAL IV ONE (07:30)
[2019-08-06] MEDS ORDERED: MIDAZOLAM 5 MG/5 ML VIAL IV ONE (07:30)
[2019-08-06] MEDS ORDERED: ePHEDrine 50 MG/ML AMPUL IV ONE (07:30)
[2019-08-06] MEDS ORDERED: METOPROLOL TARTRATE 5 MG/5 ML VIAL IV ONE (07:30)
[2019-08-06] MEDS ORDERED: HYDROmorphone 2 MG/ML VIAL IV ONE (07:30)
[2019-08-06] MEDS ORDERED: fentaNYL 250 MCG/5 ML VIAL IV ONE (07:30)
[2019-08-06] MEDS ORDERED: diphenhydrAMINE 50 MG/ML VIAL IV ONE (07:30)
[2019-08-06] MEDS ORDERED: KETAMINE 100 MG/ML ML IV ONE (07:30)
[2019-08-06] MEDS ORDERED: GLYCOPYRROLATE 0.2 MG/ML VIAL IV ONE (07:30)
[2019-08-06] MEDS ORDERED: LIDOCAINE HCL/PF 100 MG/5 ML SYRINGE IV ONE (07:30)
[2019-08-06] MEDS ORDERED: ONDANSETRON 4 MG/2 ML VIAL IV ONE (07:30)
[2019-08-06] MEDS ORDERED: PHENYLEPHRINE 10 MG/ML VIAL IV ONE (07:30)
[2019-08-06] MEDS ORDERED: PROPOFOL 200 MG/20 ML VIAL IV ONE (07:30)
[2019-08-06] MEDS ORDERED: FAMOTIDINE/PF 20 MG/2 ML VIAL IV ONE (07:30)
[2019-08-06] MEDS ORDERED: TRANEXAMIC ACID 1,000 MG/10 ML VIAL IV ONE ×2 (07:30→11:26)
[2019-08-06] MEDS ORDERED: METOCLOPRAMIDE 10 MG/2 ML VIAL IV ONE ×2 (07:30→14:19)
[2019-08-06] MEDS ORDERED: KETOROLAC 30 MG/ML VIAL IV ONE (07:30)
[2019-08-06] MEDS ORDERED: hydrALAZINE 20 MG/ML VIAL IV ONE (07:30)
[2019-08-06] MEDS ORDERED: GENTAMICIN SULFATE 800 MG/20 ML VIAL IR ONE (08:08)
[2019-08-06] MEDS ORDERED: fentaNYL 100 MCG/2 ML VIAL IV PRN (10:47)
[2019-08-06] MEDS ORDERED: ONDANSETRON 4 MG/2 ML VIAL IV PRN (10:47)
[2019-08-06] MEDS ORDERED: ACETAMINOPHEN 1,000 MG/100 ML BOTTLE IV ONE (10:47)
[2019-08-06] MEDS ORDERED: NALOXONE HCL 0.4 MG/ML VIAL IV PRN (10:47)
[2019-08-06] MEDS ORDERED: HYDROmorphone 2 MG/ML VIAL IV PRN (10:47)
[2019-08-06] MEDS ORDERED: FLUMAZENIL 0.1 MG/ML ML IV PRN (10:47)
[2019-08-06] MEDS ORDERED: LACTATED RINGERS 250 ML IV PRN (10:47)
[2019-08-06] MEDS ORDERED: LABETALOL 5 MG/ML ML IV PRN (10:47)
[2019-08-06] MEDS ORDERED: METOPROLOL TARTRATE 5 MG/5 ML VIAL IV PRN (10:47)
[2019-08-06] MEDS ORDERED: PROMETHAZINE 25 MG/ML VIAL IV PRN (10:47)
[2019-08-06] MEDS ORDERED: BENZOCAINE/MENTHOL 1 LOZENGE PO PRN ×2 (10:47→11:26)
[2019-08-06] MEDS ORDERED: IPRATROPIUM/ALBUTEROL 3 ML AMPUL.NEB NEB PRN (10:47)
[2019-08-06] MEDS ORDERED: METHOCARBAMOL 1,000 MG/10 ML VIAL IV PRN (10:47)
[2019-08-06] MEDS ORDERED: LACTATED RINGERS 1,000 ML IV SCH (11:00)
[2019-08-06] MEDS ORDERED: MAGNESIUM HYDROXIDE 30 ML ORAL.SUSP PO PRN (11:26)
[2019-08-06] MEDS ORDERED: BISACODYL 10 MG SUPP.RECT PR PRN (11:26)
[2019-08-06] MEDS ORDERED: POLYETHYLENE GLYCOL 3350 17 GM PACKET PO PRN (11:26)
[2019-08-06] MEDS ORDERED: 0.9 % SODIUM CHLORIDE 1,000 ML IV SCH (11:30)
[2019-08-06] MEDS ORDERED: ACETAMINOPHEN 500 MG TABLET PO PRN (11:32)
[2019-08-06] MEDS ORDERED: PROMETHAZINE 25 MG TABLET PO PRN (11:32)
--- NOTE | 2019-08-06 11:35 | Orthopedic Procedure Note ---
Date of procedure: Note initiated : 08/06/19 at 11:33 am Service Date, if different from initiated Date: [] Pre-op diagnosis: painful hardware; post traumatic arthritis r knee Post-op diagnosis: same Procedure: hardware removal; TKR Grafts/Implants: srom total knee replacement Surgeon: Cuong Gil [employer] Business Manager: River Diallo Estimated blood loss: 300 Pathology: none sent Condition: stable Disposition: PACU
--- NOTE | 2019-08-06 12:09 | XRay Report ---
CLINICAL INFORMATION: Status post right knee replacement TECHNIQUE: AP and crosstable lateral right knee COMPARISON: None. FINDINGS: Previous right total knee arthroplasty. Femoral stem is not included in its entirety. There is a gap between the bone of the proximal tibia and the medial aspects of the right tibial prosthesis. Alignment is essentially anatomic. There is postsurgical soft tissue gas. Normal patella is not visualized IMPRESSION: 1. Limited examination 2. Status post right total knee arthroplasty Interpreted and Authenticated by: Fam Ramirez 08/06/19
[2019-08-06] MEDS: ONDANSETRON 4 MG/2 ML VIAL IV PRN (12:50)
[2019-08-06] MEDS ORDERED: PROMETHAZINE 25 MG/ML VIAL IV ONE (14:15)
[2019-08-06] MEDS: INSULIN LISPRO 1 UNIT/0.01 ML UNIT SQ SCH ×3 (15:48→20:09)
[2019-08-06] MEDS: 0.9 % SODIUM CHLORIDE 10 ML SYRINGE IV SCH ×2 (15:49→20:24)
[2019-08-06] MEDS: GABAPENTIN 300 MG CAPSULE PO SCH (15:53)
[2019-08-06] MEDS: ceFAZolin 1 GM VIAL IV SCH ×2 (15:53→23:55)
--- NOTE | 2019-08-06 16:11 | Internal Medicine Consult Note ---
Medical - CN: HPI - Data of Consult Consult date: 08/06/19 Requesting physician: Cuong Gil Primary Care Provider: Sammy Pacheco MD - Consult Narrative Reason for consult: Evaluation of Type 1 diabetes in post-op patient History of present illness: Mr. Pacheco is a 39 year old M with a history of type 1 diabetes with complication of gastroparesis, anxiety, chronic hepatitis C, who is now postop after total knee replacement for failure to heal of a tibial plateau fracture. Patient's blood glucose was 484 postoperatively after arrival on the floor. He currently has sliding scale insulin ordered which is been administered. Patient takes 28 units of Lantus at bedtime for his basal insulin. He uses a sliding scale insulin through the rest of the day. He generally eats 1 meal per day in the evening secondary to his gastroparesis. He does occasionally have yogurt and eggs or other small items throughout the day. He tries to keep his carb intake constant on a day-to-day basis, but does not dose insulin based upon counting carbs. He states that his sugars recently have been running about 200 at home. When his glucoses do get high, they tend to increase quite rapidly. No recent episodes of diabetic ketoacidosis. Currently he has had postoperative nausea, has not had much oral intake. He is not tachypneic. CC: Cuong Gil All systems: reviewed and no additional remarkable complaints except as stated Medical - CN: PMH Medical history: Intractable vomiting (Chronic) Chronic constipation (Chronic) Esophageal ulcer (Chronic) Gastroenteritis (Acute) Dehydration (Acute) Gastroparesis (Chronic) Acute gastroenteritis (Acute) Neuropathy, peroneal nerve (Acute) Vision loss of right eye (Acute) Renal failure, acute (Acute) Pneumonia (Acute) Diabetic peripheral neuropathy (Chronic) Ingrowing nail, left great toe (Acute) Hyperphosphatemia (Acute) Hepatitis C, chronic (Chronic) Gastroparesis (Chronic) Back fracture (Acute) Diabetic ketoacidosis (Acute) Diabetes mellitus type 1 (Chronic) Depression (Acute) Chronic pain syndrome (Chronic) Attention deficit disorder (Acute) Asthma (Acute) Anxiety (Chronic) Anemia (Acute) Surgical history: Total knee arthroplasty for nonhealing of tibial plateau fracture on 08/06/2019 History of foot surgery (Chronic) History of toe surgery (Acute) Status post peripherally inserted central catheter (PICC) central line placement (Acute 06/28/13) History of esophagogastroduodenoscopy (Chronic 08/08/17) Pertinent family history: Father Malignant neoplasm of colon Multiple sclerosis Social history: Does not drink alcohol. Former tobacco smoker. Uses medical marijuana for appetite stimulant. Medical - CN: Meds Home Medications Medication Instructions Recorded Confirmed Type pen needle, diabetic 31 gauge x See Dose Instructions .ROUTE 08/06/18 12/25/18 Rx 3/16" .MEDSUPPLY #100 each MDD 5 times daily Acetaminophen [Tylenol Extra 1,000 mg PO Q6HP PRN 07/31/19 08/06/19 History Strength] Gabapentin 1,200 mg PO BID 07/31/19 08/06/19 History Gabapentin 600 mg PO DAILY@1400 07/31/19 08/06/19 History Insulin Glargine,Hum.rec.anlog 28 unit SUBCUT HS 07/31/19 08/06/19 History [Lantus Solostar] Insulin Lispro [HumaLOG] 0 unit SQ ACHS 07/31/19 08/06/19 History Metoclopramide [Reglan] 10 mg PO ACHS 07/31/19 08/06/19 History Pantoprazole Sodium 40 mg PO HS 07/31/19 08/06/19 History buPROPion HCL [Wellbutrin Xl] 300 mg PO HS 07/31/19 08/06/19 History Promethazine [Phenergan] 25 mg PO DAILYP PRN 08/06/19 08/06/19 History Allergies Allergy/AdvReac Type Severity Reaction Status Date / Time methadone AdvReac Mild Vomiting Verified 08/06/19 05:16 pregabalin [From Lyrica] AdvReac Mild Blurry Verified 08/06/19 05:16 Vision pseudoephedrine AdvReac Mild Palpitation Verified 08/06/19 05:46 s Medical - CN: Exam - Constitutional Vitals: Temp Pulse Resp BP Pulse Ox 97.5 F 110 H 20 128/78 99 08/06/19 12:27 08/06/19 14:17 08/06/19 12:27 08/06/19 14:17 08/06/19 14:17 Exam: General: In bed no acute distress HEENT: Normocephalic. Neck: Supple Chest: Respirations unlabored, no wheezing Cardiovascular: Regular Abdomen: Soft, nontender Extremities: No cyanosis or clubbing. Postoperative dressings in place. Skin: Warm, dry, normal turgor Neuro: Alert, oriented x3, moves extremities, limited by surgical dressings. Psych: Normal affect and mood, good insight. Medical - CN: Result - Labs CBC & Chem 7: 08/06/19 16:13 08/06/19 16:13 Medical - CN: A/P (1) Diabetes mellitus type 1 Status: Chronic - Narrative A/P Narrative: 39-year-old male who underwent total knee arthroplasty earlier today, now with hyperglycemia and known type I diabetic. Type 1 diabetes mellitus. Management is complicated by gastroparesis. Postoperative CBG was 484. He has received sliding scale insulin. No tachypnea or other physical findings to suggest diabetic ketoacidosis associated with his hyperglycemia. Chemistries are checked, he does have mildly elevated gap and hyperglycemia. He has now received insulin and fluids, which would be effective treatment for any mild ketosis. His hyponatremia is likely pseudohyponatremia from his hyperglycemia. With treatment of his hyperglycemia, I expect his potassium also normalized. Plan: Resume bedtime Lantus to 28 units, ordered Continue with current sliding scale insulin, will monitor response to initial therapy for glucose of 44 and adjust as needed Increase fluid rate 125 mL/hr Monitor electrolytes and acid-base status, further labs ordered. Diabetic gastroparesis. With significant postoperative nausea and vomiting. If not able to take much p.o. later today we will likely need to decrease bedtime Lantus. Plan: Monitor oral intake, consider decreasing at bedtime Lantus. Will follow and adjust as needed. Right total knee arthroplasty. Management per orthopedics Anxiety. Appears stable. Plan: Continue home meds
[2019-08-06 16:56] LABS: Basophils # (Auto) 0 K/mcL (0.0-0.3); Basophils % (Auto) 0 % (0.0-2.0); Eosinophils # (Auto) 0 K/mcL (0.0-0.7); Eosinophils % (Auto) 0 % (0.0-7.0); Granulocytes % (Auto) 93.8 % (38.0-78.0); Hematocrit 30.1 % (41.0-55.0); Hemoglobin 10.1 g/dL (13.5-16.5); Lymphocytes # (Auto) 0.7 K/mcL (1.5-4.8); Lymphocytes % (Auto) 4.6 % (15.5-49.0); Mean Cell Volume 101.2 fL (80.0-100.0); Mean Corpuscular HGB Conc 33.5 g/dL (31.0-36.0); Mean Platelet Volume 9.1 fL (7.4-10.4); Monocytes # (Auto) 0.2 K/mcL (0.1-0.9); Monocytes % (Auto) 1.6 % (1.0-12.0); Platelet Count 278 K/mcL (140-440); RBC 2.98 M/mcL (4.50-5.90); Red Cell Distribution Width 12.7 % (11.5-14.5); WBC 15.6 K/mcL (4.5-11.0)
[2019-08-06 17:26] LABS: ALT/SGPT 42 U/l (0-40); AST/SGOT 35 U/l (0-37); Albumin 3.8 gm/dL (3.2-5.2); Albumin/Globulin Ratio 1.3 (1.0-2.3); Alkaline Phosphatase 90 U/L (39-117); Bilirubin,Direct < 0.2 mg/dL (0.0-0.3); Bilirubin,Total 0.2 mg/dL (0.0-1.0); Blood Urea Nitrogen 19 mg/dl (6-20); Calcium 8.9 mg/dl (8.6-10.4); Carbon Dioxide 17 mmol/L (22-30); Chloride 95 mmol/L (96-108); Glomerular Filtration Rate 69; Glucose 525 mg/dL (70-105); Lactate Dehydrogenase 210 U/L (94-250); Phosphorous 3.9 mg/dL (2.7-4.5); Triglycerides 60 mg/dl (<150); Uric Acid 4.4 mg/dL (2.5-8.0)
[2019-08-06] MEDS: METOCLOPRAMIDE 10 MG TABLET PO SCH ×2 (17:27→20:19)
--- NOTE | 2019-08-06 17:48 | XRay Report ---
CLINICAL INFORMATION: Right total knee arthroplasty with revision TECHNIQUE: AP, cross table lateral, patellar views COMPARISON: Previous examination dated 08/06/2019 FINDINGS: Status post right total knee arthroplasty. Long femoral and tibial stems are present. Alignment is anatomic. There is a small gap between the bone of the medial tibial plateau and the tibial prosthesis. There is postsurgical intra-articular and soft tissue gas IMPRESSION: Status post right total knee arthroplasty Interpreted and Authenticated by: Fam Ramirez 08/06/19
[2019-08-06] MEDS ORDERED: MAGNESIUM SULFATE 2 GM/50 ML BAG IV ONE (19:00)
[2019-08-06] MEDS: DOCUSATE SODIUM 100 MG CAPSULE PO SCH (20:07)
[2019-08-06] MEDS: HYDROcodone/APAP 10/325MG TABLET PO PRN (20:07)
[2019-08-06] MEDS: ASPIRIN 81 MG TAB.CHEW PO SCH (20:07)
[2019-08-06] MEDS: METHOCARBAMOL 750 MG TABLET PO PRN (20:08)
[2019-08-06] MEDS: INSULIN GLARGINE, HUMAN 1 UNIT/0.01 ML SQ SCH (20:08)
[2019-08-06] MEDS: PANTOPRAZOLE 40 MG TABLET PO SCH (20:19)
[2019-08-06] MEDS: 0.9 % SODIUM CHLORIDE 1,000 ML IV SCH (20:20)
[2019-08-06] MEDS: buPROPion 150 MG TAB.XL.24H PO SCH (20:20)
[2019-08-06] MEDS: GABAPENTIN 400 MG CAPSULE PO SCH (20:20)
[2019-08-06] MEDS: SENNOSIDES 1 TABLET PO SCH (20:20)
[2019-08-07] MEDS: 0.9 % SODIUM CHLORIDE 1,000 ML IV SCH ×2 (01:01→10:02)
[2019-08-07] MEDS: METHOCARBAMOL 750 MG TABLET PO PRN ×3 (04:30→16:09)
[2019-08-07] MEDS: HYDROcodone/APAP 10/325MG TABLET PO PRN ×6 (04:30→21:30)
[2019-08-07] MEDS: 0.9 % SODIUM CHLORIDE 10 ML SYRINGE IV SCH ×3 (04:31→22:54)
--- NOTE | 2019-08-07 07:29 | Orthopedic Progress Note ---
Subjective Patient information: Note initiated : 08/07/19 at 7:26 am Service Date, if different from initiated Date: [] Patient: Mono Pacheco 39 y/o M admitted on 08/06/19 for Right Total Knee Arthroplasty w/Revision . Chief Complaint: [] Interval history: Patient is doing well and pain is controlled. He has been able to move his leg and able to do a SLR and dorsiflex his foot. He is NWB. He denies any CP, SOB, WAHL, dizziness, or numbness/tingling. Objective Vital signs: Vital Signs Temp Pulse Resp BP BP Pulse Ox 08/07/19 03:32 98.5 F 116 H 18 140/73 98 08/07/19 00:19 98.2 F 114 H 16 112/55 93 08/06/19 19:55 98.8 F 116 H 17 123/70 97 08/06/19 14:17 110 H 128/78 99 08/06/19 14:02 109 H 128/74 99 08/06/19 13:47 108 H 125/69 100 08/06/19 13:32 107 H 125/72 99 08/06/19 13:17 106 H 123/68 96 08/06/19 13:02 105 H 124/72 93 08/06/19 12:47 107 H 119/69 96 08/06/19 12:27 97.5 F 105 H 20 119/56 97 08/06/19 12:15 97.8 F 104 H 26 H 116/49 98 08/06/19 12:00 98.9 F 99 H 23 H 111/47 100 08/06/19 11:55 100 H 19 105/45 100 08/06/19 11:51 96 H 21 96/37 100 08/06/19 11:50 98 H 23 H 97/38 100 08/06/19 11:43 98.7 F 98 H 16 93/37 98 Intake and Output 08/06/19 08/07/19 08/07/19 21:59 05:59 13:59 Intake Total 100 300 Output Total 350 Balance 100 -50 Intake: Oral 100 300 Output: Void Amount 350 Other: Meal Dinner Percent of Meal Consumed 0% Feeding Ability Independent Urine Color Bright Yellow Urine Odor Normal Weight 160 lb Intake & Output: Intake & Output 08/06/19 08/07/19 08/07/19 21:59 05:59 13:59 Intake Total 100 300 Output Total 350 Balance 100 -50 Weight 160 lb Intake: Oral 100 300 Output: Void Amount 350 Other: Meal Dinner Percent of Meal Consumed 0% Feeding Ability Independent Urine Color Bright Yellow Urine Odor Normal Incision clean and dry: Yes Dressing: Yes clean, Yes dry, Yes intact Weight bearing status: non Neurological exam IM: Yes neurovascular intact Extremities exam IM: No calf tenderness, Yes Foot pink and warm, Yes neurovascular intact - Periperhal Pulses Peripheral pulses: 2+: dorsalis pedis (R) - Labs CBC & BMP: 08/06/19 16:13 08/06/19 16:13 Labs: Orthopedic Labs 07/31/19 10:18 PT 12.6 INR 0.9 08/07/19 08/06/19 07/31/19 06:45 16:13 10:17 Hgb Pending 10.1 L 12.2 L Hct Pending 30.1 L 36.2 L Assessment and Plan (1) Status post total right knee replacement 1. Non-weight bearing on RLE 2. Hospitalist for management of meds/diabetes 3. Continue PT for knee ROM 4. Plan for discharge to home tomorrow 5. Taper IV pain meds today. Status: Acute
[2019-08-07] MEDS: METOCLOPRAMIDE 10 MG TABLET PO SCH ×4 (07:53→21:31)
[2019-08-07] MEDS: INSULIN LISPRO 1 UNIT/0.01 ML UNIT SQ SCH ×4 (07:55→22:15)
[2019-08-07] MEDS: DOCUSATE SODIUM 100 MG CAPSULE PO SCH ×2 (08:40→21:31)
[2019-08-07] MEDS: GABAPENTIN 400 MG CAPSULE PO SCH ×2 (08:40→21:31)
[2019-08-07] MEDS: ASPIRIN 81 MG TAB.CHEW PO SCH ×2 (08:40→21:31)
[2019-08-07 10:23] LABS: Hematocrit 24.5 % (41.0-55.0); Hemoglobin 8.2 g/dL (13.5-16.5)
[2019-08-07] MEDS ORDERED: 0.9 % SODIUM CHLORIDE 1,000 ML IV SCH (11:44)
[2019-08-07 12:01] LABS: ALT/SGPT 27 U/l (0-40); AST/SGOT 30 U/l (0-37); Albumin 3.6 gm/dL (3.2-5.2); Albumin/Globulin Ratio 1.4 (1.0-2.3); Alkaline Phosphatase 72 U/L (39-117); Bilirubin,Direct < 0.2 mg/dL (0.0-0.3); Bilirubin,Total 0.3 mg/dL (0.0-1.0); Blood Urea Nitrogen 21 mg/dl (6-20); Calcium 8.5 mg/dl (8.6-10.4); Carbon Dioxide 24 mmol/L (22-30); Chloride 103 mmol/L (96-108); Globulin 2.5 gm/dL (2.2-3.7); Glomerular Filtration Rate 84; Glucose 40 mg/dL (70-105); Lactate Dehydrogenase 199 U/L (94-250); Phosphorous 2.9 mg/dL (2.7-4.5); Triglycerides 82 mg/dl (<150); Uric Acid 4.7 mg/dL (2.5-8.0)
[2019-08-07] MEDS: GABAPENTIN 300 MG CAPSULE PO SCH (13:37)
--- NOTE | 2019-08-07 14:31 | Internal Med Progress Note ---
Medical - PN: Subj Patient information: Note initiated : 08/07/19 at 2:28 pm Service Date, if different from initiated Date: [] Patient: Mono Pacheco a 39 y/o M admitted on 08/06/19 for Right Total Knee Arthroplasty w/Revision . Chief Complaint: [] Interval history: 08/06 Mr. Pacheco is a 39 year old M with a history of type 1 diabetes with complication of gastroparesis, anxiety, chronic hepatitis C, who is now postop after total knee replacement for failure to heal of a tibial plateau fracture. Patient's blood glucose was 484 postoperatively after arrival on the floor. He currently has sliding scale insulin ordered which is been administered. Patient takes 28 units of Lantus at bedtime for his basal insulin. He uses a sliding scale insulin through the rest of the day. He generally eats 1 meal per day in the evening secondary to his gastroparesis. He does occasionally have yogurt and eggs or other small items throughout the day. He tries to keep his carb intake constant on a day-to-day basis, but does not dose insulin based upon counting carbs. He states that his sugars recently have been running about 200 at home. When his glucoses do get high, they tend to increase quite rapidly. No recent episodes of diabetic ketoacidosis. 08/07 Did not eat much dinner last night. Given the level of hyperglycemia did go ahead and give his full 28 units of Lantus. Glucose was 65 this morning. A lit tle bit of breakfast. Prelunch glucose was 144. No longer having any nausea. Complaining of significant knee pain, being managed by orthopedics. - Constitutional Vitals: Vital Signs Temp Pulse Resp BP Pulse Ox 99.4 F H 116 H 24 H 116/74 100 08/07/19 11:55 08/07/19 03:32 08/07/19 11:55 08/07/19 11:55 08/07/19 11:55 Period Temp Pulse Resp BP Sys/Shore Pulse Ox Last 24 Hr 98.2 F-99.4 F 114-116 16-24 112-140/55-74 93-100 Intake and Output 08/07/19 08/07/19 08/07/19 05:59 13:59 21:59 Intake Total 300 1673 Output Total 350 800 Balance -50 873 Intake & Output: Intake & Output 08/07/19 08/07/19 08/07/19 05:59 13:59 21:59 Intake Total 300 1673 Output Total 350 800 Balance -50 873 Intake: IV 1273 Sodium Chloride 0.9% 1,000 ml @ 1273 125 mls/hr IV .Q8H [facility] Rx#: [id number] Oral 300 400 Output: Void Amount 350 800 Other: Meal Breakfast Percent of Meal Consumed 10% Feeding Ability Independent Urine Color Bright Yellow Dark Yellow Urine Odor Normal Exam: General: Laying in bed, no acute distress Chest: Clear, unlabored Cardiovascular: Regular Abdomen: Soft, no tenderness to palpation, bowel sounds present. Musculoskeletal: Right knee is bandaged. Neuro: Alert, oriented x3. Medical - PN: Obj Da - Labs CBC & Chem 7: 08/07/19 06:45 08/07/19 06:46 Labs: Abnormal Lab Results 08/07/19 08/07/19 08/06/19 06:46 06:45 16:13 WBC RBC Hgb 8.2 L Hct 24.5 L MCV Gran % Lymph % (Auto) Gran # Lymph # (Auto) Sodium 130 L Potassium 5.5 H Chloride 95 L Carbon Dioxide 17 L Anion Gap 18.0 H BUN 21 H Creatinine 1.3 H Glucose 40 L 525 H* Calcium 8.5 L Magnesium 1.5 L ALT 42 H 08/06/19 16:13 WBC 15.6 H RBC 2.98 L Hgb 10.1 L Hct 30.1 L MCV 101.2 H Gran % 93.8 H Lymph % (Auto) 4.6 L Gran # 14.7 H Lymph # (Auto) 0.7 L Sodium Potassium Chloride Carbon Dioxide Anion Gap BUN Creatinine Glucose Calcium Magnesium ALT Meds: Medications Acetaminophen (Tylenol) 1,000 mg PO Q6HP PRN; Protocol PRN Reason: Pain Last Admin: 08/07/19 10:43 Dose: 1,000 mg Documented by: Hydrocodone Bitart/Acetaminophen ([place] 10/325mg) 0 tab PO Q4HP PRN PRN Reason: PAIN LEVEL 3-6 Last Admin: 08/07/19 13:37 Dose: 2 tab Documented by: Aspirin (Aspirin) 81 mg PO BID [facility] Last Admin: 08/07/19 08:40 Dose: 81 mg Documented by: Bisacodyl (Dulcolax) 10 mg MI Q2-3DAYS PRN PRN Reason: Constipation Bupropion HCl (Wellbutrin Xl) 300 mg PO [facility] Last Admin: 08/06/19 20:20 Dose: 300 mg Documented by: Diagnostic Test (Pha) (Accu-Chek) 1 each FS [facility] Last Admin: 08/07/19 11:57 Dose: 1 each Documented by: Docusate Sodium (Colace) 100 mg PO BID [facility] Last Admin: 08/07/19 08:40 Dose: 100 mg Documented by: Gabapentin (Neurontin) 600 mg PO DAILY@1400 [facility] Last Admin: 08/07/19 13:37 Dose: 600 mg Documented by: Gabapentin (Neurontin) 1,200 mg PO BID [facility] Last Admin: 08/07/19 08:40 Dose: 1,200 mg Documented by: Sodium Chloride (Sodium Chloride 0.9%) 1,000 mls @ 75 mls/hr IV .[id number] [facility] Last Admin: 08/07/19 12:13 Dose: 75 mls/hr Documented by: Insulin Glargine (Lantus) 28 unit SQ [facility] Last Admin: 08/06/19 20:08 Dose: 28 units Documented by: Insulin Human Lispro (Humalog) 0 unit SQ [facility]; Protocol Last Admin: 08/07/19 11:58 Dose: Not Given Documented by: Magnesium Hydroxide (Milk Of Magnesia) 30 ml PO BIDP PRN PRN Reason: Constipation Methocarbamol (Robaxin) 750 mg PO Q6HP PRN PRN Reason: Muscle Spasm Last Admin: 08/07/19 10:43 Dose: 750 mg Documented by: Metoclopramide HCl (Reglan) 10 mg PO [facility] Last Admin: 08/07/19 12:03 Dose: 10 mg Documented by: Morphine Sulfate (Morphine) 4 mg IV Q1HP PRN; Protocol PRN Reason: Per Pain Protocol Last Admin: 08/07/19 11:10 Dose: 4 mg Documented by: Ondansetron HCl (Zofran) 4 mg IV Q4HP PRN PRN Reason: Nausea And Vomiting Last Admin: 08/06/19 12:50 Dose: 4 mg Documented by: Pantoprazole Sodium (Protonix) 40 mg PO [facility] Last Admin: 08/06/19 20:19 Dose: 40 mg Documented by: Polyethylene Glycol (Miralax) 17 gm PO DAILYP PRN PRN Reason: Constipation Promethazine HCl (Phenergan) 25 mg PO DAILYP PRN PRN Reason: Nausea Senna (Senokot) 2 tab PO HS [facility] Last Admin: 08/06/19 20:20 Dose: 2 tab Documented by: Sodium Chloride (Saline Flush) 10 ml IV Q8 [facility] Last Admin: 08/07/19 13:42 Dose: Not Given Documented by: Throat Lozenges (Cepacol) 1 lozenge PO PRN PRN PRN Reason: Sore Throat Medical - PN: A/P - Time Spent With Patient Total time spent is greater than 50% in coordination of care (as documented) at patient's floor/unit and/or counseling patient: 25 - 35 minutes (1) Diabetes mellitus type 1 Status: Chronic Current Visit: No - Narrative A/P Narrative: 39-year-old male who underwent total knee arthroplasty earlier today, now with hyperglycemia and known type I diabetic. Type 1 diabetes mellitus. Complications include gastroparesis. Significant postoperative hyperglycemia with mildly depressed bicarbonate, which is now resolved. May have provided too much bedtime insulin, however still had significant hyperglycemia at that time. Currently on his usual bedtime Lantus and daytime sliding scale which he uses at home. Electrolytes are normalizing. Plan: Continue to monitor oral intake, will adjust bedtime Lantus if needed. Currently home Lantus of 28 units is ordered Continue with current sliding scale insulin (which is his home scale) Decrease fluids to 75 mL/HR, likely will saline lock later today. Continue to monitor electrolytes and acid-base status. Diabetic gastroparesis. With significant postoperative nausea and vomiting yesterday, now resolved on POD #1. Plan: Will monitor PO intake and adjust HS Lantus if needed. Right total knee arthroplasty. Management per orthopedics. POD#1 Anxiety. Appears stable. Plan: Continue home meds Medical - PN: Qual - Stroke Symptom Onset Unknown: No - VTE Deep Vein Thrombosis/Pulmonary Embolism Present on Admission: No
[2019-08-07] MEDS: buPROPion 150 MG TAB.XL.24H PO SCH (21:31)
[2019-08-07] MEDS: SENNOSIDES 1 TABLET PO SCH (21:31)
[2019-08-07] MEDS: PANTOPRAZOLE 40 MG TABLET PO SCH (21:32)
[2019-08-07] MEDS: INSULIN GLARGINE, HUMAN 1 UNIT/0.01 ML SQ SCH (22:15)
[2019-08-08] MEDS: HYDROcodone/APAP 10/325MG TABLET PO PRN (01:17)
[2019-08-08] MEDS: 0.9 % SODIUM CHLORIDE 10 ML SYRINGE IV SCH ×2 (05:06→17:49)
[2019-08-08 06:27] LABS: Hematocrit 21.6 % (41.0-55.0); Hemoglobin 7.2 g/dL (13.5-16.5)
[2019-08-08] MEDS: ONDANSETRON 4 MG/2 ML VIAL IV PRN ×3 (07:28→19:22)
[2019-08-08] MEDS: METOCLOPRAMIDE 10 MG TABLET PO SCH ×3 (07:53→17:48)
[2019-08-08] MEDS ORDERED: 0.9 % SODIUM CHLORIDE 250 ML IV SCH (08:00)
[2019-08-08] MEDS: morphine 15 MG TABLET PO PRN ×2 (08:16→14:48)
[2019-08-08] MEDS: METHOCARBAMOL 750 MG TABLET PO PRN ×2 (08:16→14:49)
[2019-08-08] MEDS: INSULIN LISPRO 1 UNIT/0.01 ML UNIT SQ SCH ×3 (08:17→17:51)
[2019-08-08] MEDS: ASPIRIN 81 MG TAB.CHEW PO SCH (11:03)
[2019-08-08] MEDS: GABAPENTIN 400 MG CAPSULE PO SCH (11:03)
[2019-08-08] MEDS: DOCUSATE SODIUM 100 MG CAPSULE PO SCH (11:03)
[2019-08-08] MEDS: GABAPENTIN 300 MG CAPSULE PO SCH (14:48)
[2019-08-08 19:48] LABS: Hematocrit 29.6 % (41.0-55.0); Hemoglobin 10.1 g/dL (13.5-16.5)
[2019-08-08] MEDS ORDERED: PROMETHAZINE 25 MG SUPP.RECT PR PRN (20:17)
[2019-08-08] MEDS ORDERED: PROMETHAZINE 25 MG/ML VIAL IV PRN (20:17)
--- NOTE | 2019-08-10 08:09 | Operative Note ---
DATE OF OPERATION: 08/06/2019 PREOPERATIVE DIAGNOSES: 1. 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 2. Painful hardware, right tibia. POSTOPERATIVE DIAGNOSES: 1. 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 2. Painful hardware, right tibia. OPERATION: 1. Hardware removal, right knee. 2. Hinged total knee replacement, right knee. SURGEON: Cuong Gil M.D. MINI SHIFTER: River Diallo PA-C. The PA's assistance was required for the safe and efficient completion of the case. This provider's expertise and technical skill were required throughout the case. The PA assisted with preoperative coordination, intraoperative retraction, wound closure, dressing and splint application, as well as postoperative documentation and care coordination. ANESTHESIA: General done by Carmina Ridley M.D. TOURNIQUET TIME: 2 hours and then less than 90 minutes with a 15-minute break in tourniquet time. The tourniquet was set at 275 mmHg. ESTIMATED BLOOD LOSS: 300 mL. INDICATIONS FOR SURGERY: The patient is a 39-year-old insulin-dependent, brittle diabetic. He suffered a fracture of his tibial plateau about one year ago. This eventually required surgery with bone grafting. He did not heal his fracture and was getting deformity and contracture of his knee. Recent CT scan confirmed arthritic changes on the tibia, but also on the femur. There were concerns on my part that he has Charcot-type bone due to the way his bone healed in other parts of his knee on x-ray. I do not think a bone grafting procedure would have worked, and I have recommended a stemmed total knee replacement as his best option. Nevertheless, the rest of his life he remains at high risk for amputation due to his diabetes which has been poorly controlled and history of smoking, and he is aware of this. If he ever needed an amputation, it would be above the knee. SUMMARY OF PROCEDURE General anesthesia was attained. The right knee was prepped and draped. The tourniquet was put up. A midline incision was made from the quadriceps to below the tibial tubercle, including the previous incision for the fracture. This was taken down sharply to the muscle retinacular layer. The quadriceps was split, as was the medial retinaculum. The musculature was elevated off of the anteromedial tibia to expose the medial plate. This was dissected out and then removed. There was one screw shaft that was broken, and this remained within the bone. We then addressed the tibia. This was exposed. We measured preoperatively and the unstable piece went down at least 25 mm, if not up to 50 mm in the bone. We resected 25 mm initially. By chance this included the broken piece of bone, and this was removed. We then reamed and broached preparing for a stem and for a sleeve. We next prepared the femur. This was an S-ROM femur. The intramedullary canal was drilled. We then reamed the femur. The distal guide was placed. The anterior and posterior bevel cuts were made for a rotating hinge. The femur sized to a size 2. The guide was then placed to make the notch cut, and the notch cut was made. A trial femur was placed. We then tried a reduction of the tibia using a trial with both the sleeve and the stem, and it was obvious that enough tibia was not resected. I then resected another 15 mm. We then retrialed the tibia, and this was with a 25 mm metaphyseal sleeve with a revision tray. This gave an excellent combination of full flexion and extension. We then did a trial without the hinge and then with a trial hinge. We next prepared the tibia for implantation. We did cement in the MBT tray. There was also a press-fit of the metaphyseal sleeve and stem. After the cement had hardened, excess cement had been removed as well. The cement was cured with direct pressure on the prosthesis. Next, we did a press-fit of the stem and sleeve on the femur, but cemented the distal components using a cement gun. The hinge piece ultimately was placed as well. The tourniquet was let down. The surgery lasted about 4 hours being a revision case. Estimated blood loss in total was about 300 mL[address] We [address] the knee in 30 degrees of flexion. The quadriceps was closed with a Stratafix suture that was running. The medial retinaculum likewise was closed. The subcutaneous tissue was closed with interrupted buried 2-0 Monocryl, and the skin was closed with ezra. Prior to closure, a block was placed throughout the soft tissue of the knee with a multimodal solution for postoperative pain relief. The sponge and needle count was correct. The patient tolerated the procedure well. He awoke without difficulty and was taken to the recovery room in stable condition. TJF:axel Job ID: [id number] Doc ID: [id number] Cuong Gil MD
--- NOTE | 2019-08-10 09:25 | Discharge Summary ---
DATE OF ADMISSION: 08/06/2019 DATE OF DISCHARGE: 08/08/2019 DATE OF ADMISSION: 08/06/2019 DATE OF DISCHARGE: 08/08/2019 DISCHARGE DIAGNOSES: 1. Posttraumatic arthritis of the right knee. 2. Brittle diabetes. SUMMARY OF HOSPITALIZATION: The patient is 39 years old. He had a tibial plateau fracture last year. It was initially treated nonoperatively and then with displacement it was treated operatively. He ended up with a nonunion and posttraumatic arthritis and a crooked leg. He underwent a total knee using revision components and a hinge on the day of admission. Postoperatively, he did well except for anemia. He got a unit of blood on the day of discharge. He is discharged home on morphine 15 mg one p.o. q.3h. p.r.n. and aspirin 81 mg a day. He will see me back in 9 days. TJF:axel Job ID: [id number] Doc ID: [id number] Cuong Gil MD
== END 2019-08-08 20:20 | disposition home or self-care (01) | DRG 470 ==
LOC: MEDSUR 04:47
PROVIDERS: ADMIT Orthopaedic Surgery Foot and Ankle Surgery; ATTEND Orthopaedic Surgery Foot and Ankle Surgery